=== PATIENT | male | born 1960 | race Caucasian/White ===

== ENCOUNTER 2023-07-05 17:59 | Inpatient (IN) | payer MEDICARE ==
[2023-07-05] VITALS (12 sets, daily range): O2SAT 98–100
[~2023-07-05] VITALS: Ht 180.3 cm; Wt 129.7 kg
[2023-07-05] MEDS: IPRATROPIUM NEB FS 0.5 MG/2.5 ML AMPUL.NEB NEB ONE (19:08)
[2023-07-05] MEDS: ALBUTEROL FS 2.5 MG/3 ML VIAL.NEB NEB ONE (19:08)
[2023-07-05] MEDS ORDERED: IPRATROPIUM NEB FS 0.5 MG/2.5 ML AMPUL.NEB ONE (19:15)
[2023-07-05] MEDS ORDERED: ALBUTEROL FS 2.5 MG/3 ML VIAL.NEB ONE ×2 (19:15→19:46)
[2023-07-05 19:27] LABS: BASOPHILS % (AUTO) 0.9 % (0.0-2.0); EOSINOPHILS # (AUTO) 0.4 K/uL (0.0-0.7); EOSINOPHILS % (AUTO) 9.3 % (0.0-6.0); HEMATOCRIT 46 % (39-51); HEMOGLOBIN 15.3 g/dL (13.5-17.5); LYMPHOCYTES % (AUTO) 22.6 % (20.0-44.0); MEAN CORPUSCULAR HEMOGLOBIN 30 PG (26.0-33.0); MEAN CORPUSCULAR HGB CONC 33 g/dl (31.0-36.0); MEAN CORPUSCULAR VOLUME 89 fL (80-96); MONOCYTES # (AUTO) 0.3 K/uL (0.1-1.30); NEUTROPHILS # (AUTO) 2.7 K/uL (1.8-8.9); NEUTROPHILS % (AUTO) 60.2 % (43.0-81.0); PLATELET COUNT (AUTO) 100 K/uL (150-450); RED BLOOD CELL COUNT(AUTO) 5.16 MIL/uL (4.5-6.0); RED CELL DISTRIBUTION WIDTH 14.3 % (11.5-15.0); WHITE BLOOD COUNT (AUTO) 4.4 K/uL (4.3-11.0)
[2023-07-05 19:28] LABS: CARBON DIOXIDE 35 mmol/L (21-32); CHLORIDE 98 mmol/L (98-107); CREATININE 0.8 mg/dL (0.6-1.3); GLUCOSE 100 mg/dL (74-106); POTASSIUM 3.6 mmol/L (3.5-5.1); SODIUM SERUM 137 mmol/L (136-145); UREA NITROGEN, BLOOD 6 mg/dL (7-18)
[2023-07-05] MEDS: methylPREDNISolone SOD SUCC 125 MG/2ML VIAL IV ONE (19:31)
[2023-07-05] MEDS ORDERED: methylPREDNISolone SOD SUCC 125 MG/2ML VIAL ONE (19:31)
[2023-07-05] MEDS: ALBUTEROL FS 2.5 MG/0.5 ML VIAL.NEB NEB ONE ×2 (19:59→22:28)
[2023-07-05] MEDS ORDERED: ONDANSETRON HCL/PF 4 MG/2 ML VIAL IVP PRN (21:30)
[2023-07-05] MEDS ORDERED: ACETAMINOPHEN 325 MG TABLET PO PRN (21:30)
[2023-07-05] MEDS ORDERED: hydrALAZINE HCL IV 20 MG VIAL IV PRN (21:30)
[2023-07-05] MEDS ORDERED: ALBUTEROL FS 2.5 MG/0.5 ML VIAL.NEB ONE (22:32)
[2023-07-06] VITALS (11 sets, daily range): BP systolic 124–164; BP diastolic 79–101; TEMP 98.3–98.7; O2SAT 95–100
[2023-07-06] MEDS ORDERED: IPRATROPIUM/ALBUTEROL INHALER IH SCH
[2023-07-06] MEDS ORDERED: OXYC-133 PO (00:51)
[2023-07-06] MEDS ORDERED: HYDR30CR79 TP (00:51)
[2023-07-06] MEDS ORDERED: RIVA10TA PO (00:51)
[2023-07-06] MEDS ORDERED: LEVO125T8 PO (00:51)
[2023-07-06] MEDS ORDERED: MONT10TA22 PO (00:51)
[2023-07-06] MEDS ORDERED: LISI20TA30 PO (00:51)
[2023-07-06] MEDS ORDERED: NAPR-1009 PO (00:51)
[2023-07-06] MEDS ORDERED: BACL10TA PO (00:51)
[2023-07-06] MEDS ORDERED: LOSA100T31 PO (00:51)
[2023-07-06] MEDS: ALBUTEROL FS 2.5 MG/0.5 ML VIAL.NEB NEB SCH (01:30)
[2023-07-06] MEDS: IPRATROPIUM NEB FS 0.5 MG/2.5 ML AMPUL.NEB IH SCH (01:30)
[2023-07-06] MEDS: MORPHINE SULFATE INJ 2 MG/ML DISP.SYRIN IV PRN (03:41)
[2023-07-06] MEDS: methylPREDNISolone SOD SUCC 40 MG/ML VIAL IV SCH (04:49)
[2023-07-06 06:39] LABS: BASOPHILS % (AUTO) 0.1 % (0.0-2.0); EOSINOPHILS % (AUTO) 0.1 % (0.0-6.0); HEMATOCRIT 44 % (39-51); HEMOGLOBIN 14.6 g/dL (13.5-17.5); LYMPHOCYTES # (AUTO) 0.4 K/uL (0.8-4.8); LYMPHOCYTES % (AUTO) 10.7 % (20.0-44.0); MEAN CORPUSCULAR HEMOGLOBIN 30 PG (26.0-33.0); MEAN CORPUSCULAR HGB CONC 34 g/dl (31.0-36.0); MEAN CORPUSCULAR VOLUME 89 fL (80-96); NEUTROPHILS # (AUTO) 3.4 K/uL (1.8-8.9); NEUTROPHILS % (AUTO) 88.1 % (43.0-81.0); PLATELET COUNT (AUTO) 88 K/uL (150-450); RED CELL DISTRIBUTION WIDTH 14.1 % (11.5-15.0); WHITE BLOOD COUNT (AUTO) 3.9 K/uL (4.3-11.0)
[2023-07-06 06:54] LABS: ALBUMIN 3.7 g/dL (3.4-5.0); BILIRUBIN,TOTAL 0.4 mg/dL (0.2-1.0); CALCIUM, SERUM 8.9 mg/dL (8.5-10.1); MAGNESIUM 2.3 mg/dL (1.8-2.4); PHOSPHORUS 2.3 mg/dL (2.5-4.9); POTASSIUM 3.6 mmol/L (3.5-5.1)
[2023-07-06] MEDS: LEVOTHYROXINE SODIUM 125 MCG TABLET PO SCH (07:11)
[2023-07-06] MEDS: BACLOFEN (10 MG) 10 MG TABLET PO SCH (08:17)
[2023-07-06] MEDS: LISINOPRIL (20MG) 20 MG TABLET PO SCH (08:17)
[2023-07-06] MEDS: LOSARTAN POTASSIUM 50 MG TABLET PO SCH (08:17)
[2023-07-06] MEDS: MONTELUKAST SODIUM (10MG) 10 MG TABLET PO SCH (08:21)
[2023-07-06] MEDS ORDERED: HEPARIN SODIUM, PORCINE 5000 UNITS/1 ML VIAL SQ SCH (09:00)
[2023-07-06] MEDS ORDERED: HYDROCORTISONE CR 30 GM TUBE RC SCH (09:00)
[2023-07-06] MEDS: LEVOFLOXACIN (250MG) 250 MG TABLET PO SCH (10:01)
[2023-07-06 11:33] LABS: BASOPHILS % (MANUAL) 0 % (0.0-2.0); EOSINOPHILS % (MANUAL) 0 % (0-4); LYMPHOCYTES % (MANUAL) 11 % (16-48); MONOCYTES % (MANUAL) 4 % (0-11.0); NEUTROPHILS % (MANUAL) 85 (42-76)
[2023-07-06 11:34] LABS: ANISOCYTOSIS 1+; PLATELET ESTIMATE DECREASED
[2023-07-06] MEDS: RIVAROXABAN 10 MG TABLET PO SCH (17:37)
[2023-07-06] MEDS: NEUTRA PHOS 1 POWD.PACKET PO ONE (17:37)
[2023-07-07] VITALS (8 sets, daily range): BP systolic 108–138; BP diastolic 68–91; TEMP 97.3–98.1; O2SAT 94–100
[2023-07-08] VITALS (15 sets, daily range): BP systolic 121–136; BP diastolic 75–86; TEMP 97.7–98.6; O2SAT 94–100
[2023-07-08] MEDS ORDERED: CELLULOSE,OXIDIZED 1 PKT EACH MC ONE (02:15)
[2023-07-08 07:31] LABS: HEMATOCRIT 45 % (39-51); HEMOGLOBIN 14.8 g/dL (13.5-17.5); LYMPHOCYTES # (AUTO) 0.4 K/uL (0.8-4.8); LYMPHOCYTES % (AUTO) 3.3 % (20.0-44.0); MEAN CORPUSCULAR HEMOGLOBIN 30 PG (26.0-33.0); MEAN CORPUSCULAR HGB CONC 33 g/dl (31.0-36.0); MEAN CORPUSCULAR VOLUME 91 fL (80-96); MONOCYTES # (AUTO) 0.3 K/uL (0.1-1.30); MONOCYTES % (AUTO) 2.5 % (2.0-12.0); NEUTROPHILS # (AUTO) 11.9 K/uL (1.8-8.9); NEUTROPHILS % (AUTO) 94.2 % (43.0-81.0); PLATELET COUNT (AUTO) 100 K/uL (150-450); RED BLOOD CELL COUNT(AUTO) 4.97 MIL/uL (4.5-6.0); RED CELL DISTRIBUTION WIDTH 15.2 % (11.5-15.0); WHITE BLOOD COUNT (AUTO) 12.7 K/uL (4.3-11.0)
[2023-07-08 07:52] LABS: BILIRUBIN,TOTAL 0.3 mg/dL (0.2-1.0); CALCIUM, SERUM 9.3 mg/dL (8.5-10.1); CREATININE 0.9 mg/dL (0.6-1.3); MAGNESIUM 2.8 mg/dL (1.8-2.4); PHOSPHORUS 3.9 mg/dL (2.5-4.9); POTASSIUM 4.2 mmol/L (3.5-5.1); TOTAL PROTEIN, SERUM 8.4 g/dL (6.4-8.2)
[2023-07-08] MEDS: ACIDOPHILUS/BULGARICUS 1 EACH GRAN.PACK PO SCH (13:00)
[2023-07-08] MEDS: GUAIFENESIN/D-METHORPHAN HB 5 ML UDC PO PRN (13:31)
[2023-07-08] MEDS: LACTOBACILLUS RHAMNOSUS GG 1 EACH CAP.SPRINK PO SCH (17:34)
[2023-07-09] VITALS (13 sets, daily range): BP systolic 105–144; BP diastolic 74–108; TEMP 97.5–98.2; O2SAT 95–100
[2023-07-09 07:40] LABS: HEMATOCRIT 44 % (39-51); HEMOGLOBIN 14.2 g/dL (13.5-17.5); LYMPHOCYTES # (AUTO) 0.3 K/uL (0.8-4.8); LYMPHOCYTES % (AUTO) 4.2 % (20.0-44.0); MEAN CORPUSCULAR HEMOGLOBIN 30 PG (26.0-33.0); MEAN CORPUSCULAR HGB CONC 33 g/dl (31.0-36.0); MEAN CORPUSCULAR VOLUME 91 fL (80-96); MONOCYTES # (AUTO) 0.1 K/uL (0.1-1.30); MONOCYTES % (AUTO) 2.1 % (2.0-12.0); NEUTROPHILS # (AUTO) 6.2 K/uL (1.8-8.9); NEUTROPHILS % (AUTO) 93.7 % (43.0-81.0); PLATELET COUNT (AUTO) 79 K/uL (150-450); RED CELL DISTRIBUTION WIDTH 14.6 % (11.5-15.0); WHITE BLOOD COUNT (AUTO) 6.6 K/uL (4.3-11.0)
[2023-07-09 07:52] LABS: CALCIUM, SERUM 8.8 mg/dL (8.5-10.1); CREATININE 0.9 mg/dL (0.6-1.3); POTASSIUM 4.7 mmol/L (3.5-5.1)
[2023-07-09 16:08] LABS: LYMPHOCYTES % (MANUAL) 4 % (16-48); MONOCYTES % (MANUAL) 4 % (0-11.0); NEUTROPHILS % (MANUAL) 92 (42-76)
[2023-07-09 16:09] LABS: PLATELET ESTIMATE DECREASED
[2023-07-09] MEDS ORDERED: DEXTROSE 50%-WATER 50 ML DISP.SYRIN IV PRN (19:00)
[2023-07-09] MEDS: BLOOD SUGAR DIAGNOSTIC 1 EACH STRIP IN SCH (22:00)
[2023-07-10] VITALS (11 sets, daily range): BP systolic 104–150; BP diastolic 70–91; TEMP 97.4–98.6; O2SAT 95–99
[2023-07-10] MEDS: INSULIN REGULAR, HUMAN 100 UNIT/ML 3 ML VIAL SQ PRN (00:15)
[2023-07-10 07:39] LABS: HEMATOCRIT 42 % (39-51); HEMOGLOBIN 13.8 g/dL (13.5-17.5); LYMPHOCYTES # (AUTO) 0.2 K/uL (0.8-4.8); LYMPHOCYTES % (AUTO) 5.2 % (20.0-44.0); MEAN CORPUSCULAR HEMOGLOBIN 29 PG (26.0-33.0); MEAN CORPUSCULAR HGB CONC 33 g/dl (31.0-36.0); MEAN CORPUSCULAR VOLUME 90 fL (80-96); MONOCYTES # (AUTO) 0.1 K/uL (0.1-1.30); MONOCYTES % (AUTO) 3.2 % (2.0-12.0); NEUTROPHILS # (AUTO) 4.1 K/uL (1.8-8.9); NEUTROPHILS % (AUTO) 91.6 % (43.0-81.0); PLATELET COUNT (AUTO) 72 K/uL (150-450); RED CELL DISTRIBUTION WIDTH 14.3 % (11.5-15.0); WHITE BLOOD COUNT (AUTO) 4.5 K/uL (4.3-11.0)
[2023-07-10 08:49] LABS: CALCIUM, SERUM 8.6 mg/dL (8.5-10.1); CREATININE 0.8 mg/dL (0.6-1.3); POTASSIUM 4.5 mmol/L (3.5-5.1)
[2023-07-10] MEDS: methylPREDNISolone SOD SUCC 40 MG/ML VIAL IV SCH (14:30)
[2023-07-10 22:31] LABS: LYMPHOCYTES % (MANUAL) 6 % (16-48); MONOCYTES % (MANUAL) 5 % (0-11.0); NEUTROPHILS % (MANUAL) 89 (42-76); PLATELET ESTIMATE DECREASED
[2023-07-11] VITALS (8 sets, daily range): BP systolic 128–141; BP diastolic 79–88; TEMP 97.5–98.8; O2SAT 96–99
[2023-07-11 07:53] LABS: HEMATOCRIT 42 % (39-51); LYMPHOCYTES # (AUTO) 0.2 K/uL (0.8-4.8); LYMPHOCYTES % (AUTO) 5.4 % (20.0-44.0); MEAN CORPUSCULAR HEMOGLOBIN 30 PG (26.0-33.0); MEAN CORPUSCULAR HGB CONC 33 g/dl (31.0-36.0); MEAN CORPUSCULAR VOLUME 89 fL (80-96); MONOCYTES # (AUTO) 0.2 K/uL (0.1-1.30); MONOCYTES % (AUTO) 5.9 % (2.0-12.0); NEUTROPHILS # (AUTO) 3.6 K/uL (1.8-8.9); NEUTROPHILS % (AUTO) 88.7 % (43.0-81.0); PLATELET COUNT (AUTO) 66 K/uL (150-450); RED CELL DISTRIBUTION WIDTH 14.6 % (11.5-15.0); WHITE BLOOD COUNT (AUTO) 4.1 K/uL (4.3-11.0)
[2023-07-11 08:13] LABS: CALCIUM, SERUM 8.6 mg/dL (8.5-10.1); CREATININE 0.8 mg/dL (0.6-1.3); POTASSIUM 4.9 mmol/L (3.5-5.1)
[2023-07-11] MEDS ORDERED: MORPHINE SULFATE INJ 2 MG/ML DISP.SYRIN IV PRN (10:00)
[2023-07-11] MEDS: ALBUTEROL FS 2.5 MG/0.5 ML VIAL.NEB NEB PRN (10:18)
[2023-07-11] MEDS ORDERED: IPRA0.2S9 IH (15:27)
[2023-07-11] MEDS ORDERED: METH4TAB17 PO (15:27)
[2023-07-11] MEDS ORDERED: GUAI5SYR PO (15:27)
[2023-07-11] MEDS ORDERED: LEVO250T59 PO (15:27)
[2023-07-11] MEDS ORDERED: ALBU2.5V13 NEB (15:27)
[2023-07-11] MEDS ORDERED: LACT1CAP72 PO (15:27)
[2023-07-11 19:33] LABS: ANISOCYTOSIS 1+; LYMPHOCYTES % (MANUAL) 5 % (16-48); MONOCYTES % (MANUAL) 4 % (0-11.0); NEUTROPHILS % (MANUAL) 91 (42-76); PLATELET ESTIMATE DECRE
[2023-07-11 19:34] LABS: ROULEAUX 1+
== END 2023-07-11 21:11 | disposition home or self-care (01) | DRG 193 ==
LOC: ER 17:59 → EDBD 17:59 → TRANSITION 22:10 → TELE1 23:25 → MEDSG1 07-10 10:27
PROVIDERS: ATTEND Nurse Practitioner Acute Care
DX: J15.9 Unspecified bacterial pneumonia (principal); J96.21 Acute and chronic respiratory failure with hypoxia; J44.0 Chronic obstructive pulmonary disease with (acute) lower respiratory infection; J44.1 Chronic obstructive pulmonary disease with (acute) exacerbation; E66.2 Morbid (severe) obesity with alveolar hypoventilation; E87.1 Hypo-osmolality and hyponatremia; J45.901 Unspecified asthma with (acute) exacerbation; R73.9 Hyperglycemia, unspecified; Z99.81 Dependence on supplemental oxygen; Z79.01 Long term (current) use of anticoagulants; Z98.890 Other specified postprocedural states; Z79.899 Other long term (current) drug therapy; B34.9 Viral infection, unspecified; I50.9 Heart failure, unspecified; Z68.39 Body mass index [BMI] 39.0-39.9, adult; T38.0X5A Adverse effect of glucocorticoids and synthetic analogues, initial encounter; D69.6 Thrombocytopenia, unspecified; Y92.9 Unspecified place or not applicable
CPT/HCPCS: 36415; 70220-TC; 71045-TC; 80048-TC; 80053-TC; 83735-TC; 83880; 84100-TC; 84484-TC; 85025-TC; 93307-TC; 93970-TC; 94799-TC; 97110-TC; 97112-TC; 97530-TC; A6403; G0378; J1644; J1815; J2270; J2405; J2920; J2930

== ENCOUNTER 2024-05-16 13:57 | Inpatient (IN) | payer MEDICARE, OTHER ==
[~2024-05-16] VITALS: Ht 180.3 cm; Wt 127.0 kg
[~2024-05-16 13:57] MED LIST: ALBU2.5V13 NEB; BACL10TA PO; GUAI5SYR PO; HYDR30CR79 TP; IPRA0.2S9 IH; LACT1CAP72 PO; LEVO125T8 PO; LEVO250T59 PO; LISI20TA30 PO; LOSA100T31 PO; METH4TAB17 PO; MONT10TA22 PO; OXYC-133 PO
[2024-05-16 14:54] LABS: BASOPHILS % (AUTO) 1.1 % (0.0-2.0); EOSINOPHILS # (AUTO) 0.3 K/uL (0.0-0.7); EOSINOPHILS % (AUTO) 5.7 % (0.0-6.0); HEMATOCRIT 42 % (39-51); HEMOGLOBIN 14.1 g/dL (13.5-17.5); LYMPHOCYTES # (AUTO) 0.6 K/uL (0.8-4.8); LYMPHOCYTES % (AUTO) 13.8 % (20.0-44.0); MEAN CORPUSCULAR HEMOGLOBIN 32 PG (26.0-33.0); MEAN CORPUSCULAR HGB CONC 34 g/dl (31.0-36.0); MEAN CORPUSCULAR VOLUME 93 fL (80-96); MONOCYTES # (AUTO) 0.3 K/uL (0.1-1.30); MONOCYTES % (AUTO) 5.6 % (2.0-12.0); NEUTROPHILS # (AUTO) 3.3 K/uL (1.8-8.9); NEUTROPHILS % (AUTO) 73.8 % (43.0-81.0); PLATELET COUNT (AUTO) 85 K/uL (150-450); WHITE BLOOD COUNT (AUTO) 4.5 K/uL (4.3-11.0)
[2024-05-16] MEDS: IPRATROPIUM NEB FS 0.5 MG/2.5 ML AMPUL.NEB NEB ONE (15:00)
[2024-05-16] MEDS: ALBUTEROL FS 2.5 MG/3 ML VIAL.NEB NEB ONE (15:00)
[2024-05-16] MEDS ORDERED: methylPREDNISolone SOD SUCC 40 MG/ML VIAL ONE (15:05)
[2024-05-16 15:17] LABS: ALANINE AMINOTRANSFERASE 44 U/L (12-78); ALBUMIN 3.7 g/dL (3.4-5.0); ALKALINE PHOSPHATASE 67 U/L (46-116); ASPARTATE AMINOTRANSFERASE 55 U/L (15-37); BILIRUBIN,DIRECT 0.2 mg/dL (0.0-0.2); BILIRUBIN,TOTAL 0.7 mg/dL (0.2-1.0); CARBON DIOXIDE 34 mmol/L (21-32); CHLORIDE 102 mmol/L (98-107); GLUCOSE 107 mg/dL (74-106); NT-PRO BNP 40 pg/mL (0-125); POTASSIUM 3.7 mmol/L (3.5-5.1); SODIUM SERUM 141 mmol/L (136-145); TOTAL PROTEIN, SERUM 7.5 g/dL (6.4-8.2); UREA NITROGEN, BLOOD 8 mg/dL (7-18)
[2024-05-16 15:23] LABS: CALCIUM, SERUM 8.7 mg/dL (8.5-10.1)
[2024-05-16 15:31] LABS: BASOPHILS % (MANUAL) 0 % (0.0-2.0); EOSINOPHILS % (MANUAL) 5 % (0-4); LYMPHOCYTES % (MANUAL) 12 % (16-48); MONOCYTES % (MANUAL) 8 % (0-11.0); NEUTROPHILS % (MANUAL) 75 (42-76); PLATELET ESTIMATE DECREASED
[2024-05-16 15:32] LABS: ANISOCYTOSIS 1+
[2024-05-16] MEDS: methylPREDNISolone SOD SUCC 40 MG/ML VIAL IV ONE (15:45)
[2024-05-16] MEDS ORDERED: ALBUTEROL FS 2.5 MG/3 ML VIAL.NEB ONE (16:07)
[2024-05-16 16:13] VITALS: O2SAT 95
[2024-05-16] MEDS ORDERED: ACETAMINOPHEN 325 MG TABLET ONE (19:00)
[2024-05-16] MEDS: ACETAMINOPHEN 325 MG TABLET PO ONE (19:01)
[2024-05-16] MEDS: AZITHROMYCIN 500 MG in IV D5W 250 ML IV ONE (19:30)
[2024-05-16] MEDS: CEFTRIAXONE 1GM BAG (ER ONLY) 50 ML IV ONE (19:30)
[2024-05-16] MEDS ORDERED: CEFTRIAXONE 1GM BAG (ER ONLY) 50 ML IV ONE (19:49)
[2024-05-16] MEDS ORDERED: AZITHROMYCIN 500 MG VIAL ONE (19:49)
[2024-05-16 20:30] VITALS: BP 161/87; TEMP 98.1; O2SAT 95
[2024-05-16] MEDS ORDERED: ONDANSETRON HCL/PF 4 MG/2 ML VIAL IVP PRN (20:30)
[2024-05-16] MEDS ORDERED: ALBUTEROL FS 2.5 MG/3 ML VIAL.NEB NEB PRN (20:30)
[2024-05-16] MEDS ORDERED: MAGNESIUM HYDROXIDE 30 ML UDC PO PRN (20:30)
[2024-05-16] MEDS ORDERED: IPRATROPIUM NEB FS 0.5 MG/2.5 ML AMPUL.NEB NEB PRN (20:30)
[2024-05-16] MEDS ORDERED: ACETAMINOPHEN 325 MG TABLET PO PRN (20:30)
[2024-05-16] MEDS ORDERED: MAG HYDROX/AL HYDROX/SIMETH 30 ML UDC PO PRN (20:30)
[2024-05-16 21:33] VITALS: BP 158/87; TEMP 98.1; O2SAT 95
[2024-05-17] VITALS (9 sets, daily range): BP systolic 111–138; BP diastolic 64–87; TEMP 97.5–98.2; O2SAT 96–100
[2024-05-17] MEDS: methylPREDNISolone SOD SUCC 40 MG/ML VIAL IV SCH (05:25)
[2024-05-17] MEDS: oxyCODONE/APAP (5/325 MG) 1 UDTAB TABLET PO PRN ×2 (06:04→12:47)
[2024-05-17] MEDS: LEVOTHYROXINE SODIUM 125 MCG TABLET PO SCH (06:45)
[2024-05-17 07:31] LABS: BASOPHILS % (AUTO) 0.1 % (0.0-2.0); HEMATOCRIT 43 % (39-51); HEMOGLOBIN 14.4 g/dL (13.5-17.5); LYMPHOCYTES # (AUTO) 0.5 K/uL (0.8-4.8); LYMPHOCYTES % (AUTO) 8.2 % (20.0-44.0); MEAN CORPUSCULAR HEMOGLOBIN 31 PG (26.0-33.0); MEAN CORPUSCULAR HGB CONC 34 g/dl (31.0-36.0); MEAN CORPUSCULAR VOLUME 93 fL (80-96); MONOCYTES # (AUTO) 0.1 K/uL (0.1-1.30); MONOCYTES % (AUTO) 1.2 % (2.0-12.0); NEUTROPHILS # (AUTO) 5.6 K/uL (1.8-8.9); NEUTROPHILS % (AUTO) 90.5 % (43.0-81.0); PLATELET COUNT (AUTO) 101 K/uL (150-450); RED BLOOD CELL COUNT(AUTO) 4.64 MIL/uL (4.5-6.0); RED CELL DISTRIBUTION WIDTH 15.1 % (11.5-15.0); WHITE BLOOD COUNT (AUTO) 6.2 K/uL (4.3-11.0)
[2024-05-17 08:06] LABS: CALCIUM, SERUM 8.7 mg/dL (8.5-10.1); CARBON DIOXIDE 30 mmol/L (21-32); CHLORIDE 101 mmol/L (98-107); GLUCOSE 204 mg/dL (74-106); MAGNESIUM 2.4 mg/dL (1.8-2.4); NT-PRO BNP 37 pg/mL (0-125); PHOSPHORUS 3.3 mg/dL (2.5-4.9); SODIUM SERUM 139 mmol/L (136-145); UREA NITROGEN, BLOOD 9 mg/dL (7-18)
[2024-05-17] MEDS: CEFTRIAXONE 1 G in IV D5W 50 ML IV SCH (08:16)
[2024-05-17] MEDS: MONTELUKAST SODIUM (10MG) 10 MG TABLET PO SCH (08:16)
[2024-05-17] MEDS: BACLOFEN (10 MG) 10 MG TABLET PO SCH (08:16)
[2024-05-17] MEDS: PANTOPRAZOLE 40 MG TABLET.DR PO SCH (08:16)
[2024-05-17] MEDS ORDERED: NAPR-1009 PO (08:38)
[2024-05-17] MEDS ORDERED: BACL5TAB PO (08:38)
[2024-05-17] MEDS ORDERED: ALBU6.7H9 IH (08:38)
[2024-05-17] MEDS ORDERED: LOSARTAN POTASSIUM 50 MG TABLET PO SCH (09:00)
[2024-05-17 09:04] LABS: ABG BASE EXCESS -0.9 mmol/L (-2.0-3.0); ABG OXYGEN SATURATION 96.8 % (94.0-98.0); ABG PCO2 44.6 mmHg (35.0-48.0); ABG PH 7.363 (7.350-7.450); ABG PO2 88.6 mmHg (83.0-108.0); ABG TOTAL HEMOGLOBIN 16.1 G/dL (13.5-17.5); COHb 0.7 % (0.5-1.5); MetHb 0.2 % (0.0-1.5); O2Hb 95.9 % (94.0-97.0); SITE, ABG RIGHT RADIAL
[2024-05-17] MEDS: ALBUTEROL FS 2.5 MG/3 ML VIAL.NEB NEB SCH (09:07)
[2024-05-17] MEDS: IPRATROPIUM NEB FS 0.5 MG/2.5 ML AMPUL.NEB NEB SCH (09:07)
[2024-05-17] MEDS: AZITHROMYCIN 500 MG in IV D5W 250 ML IV SCH (09:29)
[2024-05-17] MEDS: LISINOPRIL (20MG) 20 MG TABLET PO SCH (10:21)
[2024-05-17 10:32] LABS: THYROID STIMULATING HORMONE 13.54 uIU/mL (0.358-3.74)
[2024-05-17] MEDS: ENOXAPARIN SODIUM 40 MG/0.4 ML DISP.SYRIN SQ SCH (12:48)
[2024-05-18] VITALS (8 sets, daily range): BP systolic 130–132; BP diastolic 82–85; TEMP 98–98.2; O2SAT 95–99
[2024-05-18] MEDS: CLOTRIMAZOLE/BETAMETASONE DIPROPIONATE 15 GM TUBE TP SCH (08:51)
[2024-05-18] MEDS: Z GUARD REMEDY 4 OZ OINT TP PRN (08:52)
[2024-05-18] MEDS: oxyCODONE/APAP (5/325 MG) 1 UDTAB TABLET PO PRN (14:29)
[2024-05-19] VITALS (9 sets, daily range): BP systolic 114–134; BP diastolic 59–87; TEMP 97.3–98.4; O2SAT 97–99
[2024-05-19 07:14] LABS: HEMATOCRIT 41 % (39-51); HEMOGLOBIN 13.4 g/dL (13.5-17.5); LYMPHOCYTES # (AUTO) 0.3 K/uL (0.8-4.8); LYMPHOCYTES % (AUTO) 3.4 % (20.0-44.0); MEAN CORPUSCULAR HEMOGLOBIN 31 PG (26.0-33.0); MEAN CORPUSCULAR HGB CONC 33 g/dl (31.0-36.0); MEAN CORPUSCULAR VOLUME 94 fL (80-96); MONOCYTES # (AUTO) 0.2 K/uL (0.1-1.30); MONOCYTES % (AUTO) 2.1 % (2.0-12.0); NEUTROPHILS # (AUTO) 8.9 K/uL (1.8-8.9); NEUTROPHILS % (AUTO) 94.5 % (43.0-81.0); PLATELET COUNT (AUTO) 93 K/uL (150-450); RED BLOOD CELL COUNT(AUTO) 4.38 MIL/uL (4.5-6.0); RED CELL DISTRIBUTION WIDTH 15.2 % (11.5-15.0); WHITE BLOOD COUNT (AUTO) 9.4 K/uL (4.3-11.0)
[2024-05-19 07:50] LABS: ALBUMIN 3.8 g/dL (3.4-5.0); BILIRUBIN,TOTAL 0.3 mg/dL (0.2-1.0); CALCIUM, SERUM 8.5 mg/dL (8.5-10.1); MAGNESIUM 2.8 mg/dL (1.8-2.4); PHOSPHORUS 3.3 mg/dL (2.5-4.9); POTASSIUM 4.4 mmol/L (3.5-5.1); TOTAL PROTEIN, SERUM 7.6 g/dL (6.4-8.2)
[2024-05-19 08:19] LABS: BASOPHILS % (MANUAL) 0 % (0.0-2.0); EOSINOPHILS % (MANUAL) 0 % (0-4); LYMPHOCYTES % (MANUAL) 2 % (16-48); MONOCYTES % (MANUAL) 2 % (0-11.0); NEUTROPHILS % (MANUAL) 96 (42-76); PLATELET ESTIMATE DECREASED
[2024-05-19] MEDS: POTASSIUM CHLORIDE 20 MEQ TAB.PRT.SR PO SCH (10:01)
[2024-05-19] MEDS: FUROSEMIDE 40 MG/4 ML VIAL IV SCH (10:01)
[2024-05-19] MEDS: methylPREDNISolone SOD SUCC 40 MG/ML VIAL IV SCH (10:33)
[2024-05-20] VITALS (9 sets, daily range): BP systolic 135–142; BP diastolic 82–86; TEMP 97.3–98.2; O2SAT 94–99
[2024-05-20 08:08] LABS: HEMATOCRIT 40 % (39-51); HEMOGLOBIN 13.5 g/dL (13.5-17.5); LYMPHOCYTES # (AUTO) 0.4 K/uL (0.8-4.8); LYMPHOCYTES % (AUTO) 6.3 % (20.0-44.0); MEAN CORPUSCULAR HEMOGLOBIN 31 PG (26.0-33.0); MEAN CORPUSCULAR HGB CONC 33 g/dl (31.0-36.0); MEAN CORPUSCULAR VOLUME 94 fL (80-96); MONOCYTES # (AUTO) 0.3 K/uL (0.1-1.30); MONOCYTES % (AUTO) 4.5 % (2.0-12.0); NEUTROPHILS # (AUTO) 5.1 K/uL (1.8-8.9); NEUTROPHILS % (AUTO) 89.2 % (43.0-81.0); PLATELET COUNT (AUTO) 85 K/uL (150-450); RED BLOOD CELL COUNT(AUTO) 4.32 MIL/uL (4.5-6.0); RED CELL DISTRIBUTION WIDTH 14.7 % (11.5-15.0); WHITE BLOOD COUNT (AUTO) 5.7 K/uL (4.3-11.0)
[2024-05-20 08:28] LABS: ALBUMIN 3.4 g/dL (3.4-5.0); BILIRUBIN,TOTAL 0.3 mg/dL (0.2-1.0); CALCIUM, SERUM 8.5 mg/dL (8.5-10.1); MAGNESIUM 2.8 mg/dL (1.8-2.4); PHOSPHORUS 3.5 mg/dL (2.5-4.9); POTASSIUM 4.5 mmol/L (3.5-5.1); TOTAL PROTEIN, SERUM 7.1 g/dL (6.4-8.2)
[2024-05-20 09:11] LABS: BASOPHILS % (MANUAL) 0 % (0.0-2.0); EOSINOPHILS % (MANUAL) 0 % (0-4); LYMPHOCYTES % (MANUAL) 4 % (16-48); MONOCYTES % (MANUAL) 2 % (0-11.0); NEUTROPHILS % (MANUAL) 94 (42-76); PLATELET ESTIMATE DECREASED
[2024-05-20] MEDS: IPRATROPIUM NEB FS 0.5 MG/2.5 ML AMPUL.NEB ONE (12:59)
[2024-05-20] MEDS: ALBUTEROL FS 2.5 MG/3 ML VIAL.NEB ONE (13:00)
[2024-05-20] MEDS: ALBUTEROL FS 2.5 MG/3 ML VIAL.NEB NEB SCH (13:02)
[2024-05-20] MEDS: IPRATROPIUM NEB FS 0.5 MG/2.5 ML AMPUL.NEB NEB SCH (13:02)
[2024-05-21] VITALS (13 sets, daily range): BP systolic 139–163; BP diastolic 87–103; TEMP 97.9–98.5; O2SAT 94–100
[2024-05-22] VITALS (9 sets, daily range): BP systolic 140; BP diastolic 92; TEMP 98.8; O2SAT 95–99
[2024-05-22] MEDS ORDERED: METH4TAB17 PO (07:38)
== END 2024-05-22 13:30 | disposition home or self-care (01) | DRG 193 ==
LOC: ER 14:05 → TELE 19:43 → MED 05-18 14:27
PROVIDERS: ADMIT Nurse Practitioner Family; ATTEND Nurse Practitioner Acute Care
PROC: 0HBRXZZ Excision of Toe Nail, External Approach (ICD-10-PCS; principal; 2024-05-17)
DX: J15.9 Unspecified bacterial pneumonia (principal); I50.31 Acute diastolic (congestive) heart failure; J96.01 Acute respiratory failure with hypoxia; J45.901 Unspecified asthma with (acute) exacerbation; I85.00 Esophageal varices without bleeding; I11.0 Hypertensive heart disease with heart failure; E66.9 Obesity, unspecified; L60.3 Nail dystrophy; B35.4 Tinea corporis; B35.3 Tinea pedis; Z20.822 Contact with and (suspected) exposure to COVID-19; B35.1 Tinea unguium; E03.9 Hypothyroidism, unspecified; E78.5 Hyperlipidemia, unspecified; G89.29 Other chronic pain; E66.01 Morbid (severe) obesity due to excess calories; R73.9 Hyperglycemia, unspecified; Z68.39 Body mass index [BMI] 39.0-39.9, adult; J20.9 Acute bronchitis, unspecified; G47.33 Obstructive sleep apnea (adult) (pediatric); R91.1 Solitary pulmonary nodule; K76.9 Liver disease, unspecified; Z91.199 Patient's noncompliance with other medical treatment and regimen due to unspecified reason; R16.2 Hepatomegaly with splenomegaly, not elsewhere classified; K44.9 Diaphragmatic hernia without obstruction or gangrene; K80.20 Calculus of gallbladder without cholecystitis without obstruction; Z99.81 Dependence on supplemental oxygen; I87.2 Venous insufficiency (chronic) (peripheral)
CPT/HCPCS: 36415; 71045-TC; 71250-TC; 80048-TC; 80053-TC; 80061-TC; 80076-TC; 83735-TC; 83880; 84100-TC; 84439-TC; 84443-TC; 84484-TC; 85025-TC; 87040-TC; 87081-TC; 93307-TC; 94760-TC; 94761-TC; 94799-TC; 97116-TC; 97530-TC; A4223; G0378; J0456; J0696; J1650; J1940; J2919; J7050; J7060